=== PATIENT | female | born 1975 | race Caucasian/White ===

== ENCOUNTER → 2020-05-21 | Outpatient (CLI) | payer OTHER ==
[~2020-05-21] MED LIST: GLEEVEC400 MG PO; HYDROCHLOROTHIA25 MG PO; K-DUR TAB 10 M10 MEQ PO; LODINE CAP 300300 MG PO; PRAVASTATIN SOD10 MG PO; TRAMADOL HCL50 MG PO; ZOLOFT25 MG PO
== END ==
LOC: KOH-I 12:12
DX: M25.531 Pain in right wrist (principal)
CPT/HCPCS: 73100